=== PATIENT | female | born 1985 | race Caucasian/White ===

== ENCOUNTER 2020-01-03 03:50 | Inpatient (IN) | payer MEDICAID, OTHER ==
[~2020-01-03] VITALS: Ht 160 cm; Wt 70.3 kg
[~2020-01-03 03:50] MED LIST: CA; MAG; OMEGCAP2; PRE NATAL
[2020-01-03] MEDS ORDERED: LACT. RINGERS/OXYTOCIN 20UNITS 1,000 ML IV SCH (04:09)
[2020-01-03] MEDS ORDERED: LACTATED RINGER'S 1,000 ML IV SCH (04:09)
[2020-01-03] MEDS ORDERED: PENICILLIN G POT 5MIL/D5 50ML 50 ML IV ONE (04:15)
[2020-01-03] MEDS ORDERED: DERMOPLAST 60ML BOTTLE TOP PRN (04:15)
[2020-01-03] MEDS ORDERED: METHYLERGONOVINE MALEATE 0.2 MG/ML AMP IM PRN (04:15)
[2020-01-03] MEDS ORDERED: PHISODERM TOP SOLN 240ML BTL TOP PRN (04:15)
[2020-01-03] MEDS ORDERED: CARBOPROST TROMETHAMINE 250 MCG/1ML VIAL IM PRN (04:15)
[2020-01-03] MEDS ORDERED: WITCH HAZEL-GLYCERIN PAD TOP PRN (04:15)
[2020-01-03 04:59] LABS: Basophils # (auto) 0 10 ^3/uL (0-0.2); Basophils % (auto) 0.5 % (0.0-2.0); Eosinophils # (auto) 0.1 10 ^3/uL (0-0.8); Eosinophils % (auto) 0.7 % (0.0-7.0); Hematocrit 40.1 % (36.0-46.0); Hemoglobin 13.4 g/dL (12.2-16.2); Lymphocytes # (auto) 1.6 10 ^3/uL (0.4-5.4); Lymphocytes % (auto) 18.9 % (10.0-50.0); Mean Corpuscular Hemoglobin 28.4 pg (28.0-32.0); Mean Corpuscular Hgb Conc. 33.4 g/dL (32.0-36.0); Mean Corpuscular Volume 85.3 fL (80.0-100.0); Monocytes # (auto) 0.7 10 ^3/uL (0-1.3); Monocytes % (auto) 7.8 % (0.0-12.0); Neutrophils # (auto) 6.1 10 ^3/uL (1.6-8.6); Neutrophils % (auto) 72.1 % (37.0-80.0); Nucleated Red Blood Cells % 0.2 %; Platelet Count (auto) 130 10^3/uL (140-450); White Blood Cell 8.4 10^3/uL (4.4-10.8)
[2020-01-03 05:14] LABS: INR 0.99 (0.9-1.15)
[2020-01-03 05:19] LABS: Albumin 2.8 g/dL (3.4-5.0); Calcium 8.4 mg/dL (8.5-10.1); Potassium 3.6 mmol/L (3.5-5.1)
[2020-01-03 05:22] LABS: BUN/Creatinine Ratio 20.5; Bilirubin, Total 0.3 mg/dL (0.2-1.0); Total Protein 6.5 g/dL (6.4-8.2)
[2020-01-03] MEDS ORDERED: ACETAMINOPHEN 325 MG TAB PO PRN (06:30)
[2020-01-03] MEDS: IBUPROFEN 600 MG TAB PO PRN ×3 (06:38→20:09)
[2020-01-03 07:00] VITALS: BP 116/56
[2020-01-03] MEDS ORDERED: PENICILLIN G POTASSIUM 2,500,000 UNITS in D5W 5% 50 ML IV SCH (08:15)
[2020-01-03 11:05] VITALS: BP 108/60
[2020-01-03 15:00] VITALS: BP 113/59
[2020-01-03 19:24] VITALS: BP 120/60
[2020-01-03 23:30] VITALS: BP 109/58
[2020-01-04 04:11] LABS: RPR Non Reactive (Non Reactive)
[2020-01-04 05:07] LABS: Rubella Antibodies, IgG 2.25 index (Immune >0.99)
[2020-01-04] MEDS: IBUPROFEN 600 MG TAB PO PRN (05:34)
[2020-01-04 07:01] VITALS: BP 110/67
[2020-01-04 11:37] VITALS: BP 124/58
== END 2020-01-04 11:23 | disposition home or self-care (01) | DRG 807 ==
LOC: OBSVTOIN 03:50 → LDRP 03:50
PROVIDERS: ADMIT Obstetrics & Gynecology; ATTEND Obstetrics & Gynecology
PROC: 10E0XZZ Delivery of Products of Conception, External Approach (ICD-10-PCS; principal; 2020-01-03)
DX: O69.1XX0 Labor and delivery complicated by cord around neck, with compression, not applicable or unspecified (principal); Z37.0 Single live birth; Z3A.39 39 weeks gestation of pregnancy; Z88.2 Allergy status to sulfonamides; Z91.011 Allergy to milk products
CPT/HCPCS: 36415; 59025; 59409; 80053; 84112; 85025; 85610; 85730; 86592; 86703; 86762; 86850; 86900; 86901; 87340; 96361; 96366; G0378; J2540; J2590; J7060

== ENCOUNTER 2021-10-13 17:37 | Emergency (ER) | payer OTHER ==
[~2021-10-13] VITALS: Ht 157.5 cm; Wt 49.9 kg
[2021-10-13 18:04] VITALS: BP 119/81
[2021-10-13] MEDS ORDERED: ALPR0.5T7 PO (19:32)
== END 2021-10-13 21:15 | disposition home or self-care (01) ==
LOC: ER 17:40
DX: F41.0 Panic disorder [episodic paroxysmal anxiety] (principal)